=== PATIENT | male | born 1990 | race American Indian/Alaskan Native ===

== ENCOUNTER 2018-04-13 14:53 | Emergency (ER) | payer MEDICAID ==
[2018-04-13 15:02] VITALS: BMI 26.6
--- NOTE | 2018-04-13 15:58 | C.PDOC ---
History Of Present Illness 28yo male, otherwise healthy, comes to ER reporting concern due to "swelling" to the left side of his chest. Patient states he first noticed the "swelling" this morning but states he is unaware of how long the swelling has been present. He denies any fever, chills, trauma, chest pain or shortness of breath. No other complaitns. Time Seen by Provider: 04/13/18 15:42 Chief Complaint (Nursing): Medical Clearance History Per: Patient History/Exam Limitations: no limitations Onset/Duration Of Symptoms: Unknown Additional History Per: Patient Past Medical History Reviewed: Historical Data, Nursing Documentation, Vital Signs Vital Signs: Last Vital Signs Temp 98.4 F 04/13/18 15:02 Pulse 55 L 04/13/18 15:02 Resp 16 04/13/18 15:02 BP 118/72 04/13/18 15:02 Pulse Ox 99 04/13/18 15:02 - Medical History PMH: No Chronic Diseases Surgical History: No Surg Hx Family History: States: No Known Family Hx - Social History Hx Alcohol Use: No Hx Substance Use: No - Immunization History Hx Tetanus Toxoid Vaccination: No Hx Influenza Vaccination: No Hx Pneumococcal Vaccination: No Review Of Systems Constitutional: Negative for: Fever Cardiovascular: Positive for: Other ("swelling"). Negative for: Chest Pain Respiratory: Negative for: Cough, Shortness of Breath Skin: Negative for: Rash Physical Exam - Physical Exam Appears: Non-toxic, No Acute Distress Skin: Normal Color, Warm, Dry, No Rash Head: Atraumatic, Normacephalic Eye(s): bilateral: Normal Inspection Neck: Normal ROM, Supple Chest: No Symmetrical ((+) mild asymmetry noted on left lat, compared to right side. nontender and no mass noted.), No Deformity, No Tenderness Cardiovascular: Rhythm Regular Respiratory: Normal Breath Sounds Gastrointestinal/Abdominal: Normal Exam, Soft Back: Normal Inspection Extremity: Normal ROM Neurological/Psych: Oriented x3, Other (anxious appearing) ED Course And Treatment O2 Sat by Pulse Oximetry: 99 (RA) Pulse Ox Interpretation: Normal Medical Decision Making Medical Decision Making: Offered patient a CXR to r/o bony abnormalities. Patient declines any studies at this time and will follow up outpatient. Disposition Counseled Patient/Family Regarding: Diagnosis, Need For Followup - Disposition Referrals: [facility] [Outside] [facility] [Outside] Disposition: HOME/ ROUTINE Disposition Time: 15:57 Condition: GOOD Additional Instructions: FOLLOW UP CLINIC, RETURN IF WORSENING SYMPTOMS. Forms: [facility] (Frisian), General Discharge Instructions - Clinical Impression Clinical Impression: Chest wall asymmetry - Scribe Statement The provider has reviewed the documentation as recorded by the Scribe Leah Sutton Provider Attestation: All medical record entries made by the Scribe were at my direction and personally dictated by me. I have reviewed the chart and agree that the record accurately reflects my personal performance of the history, physical exam, medical decision making, and the department course for this patient. I have also personally directed, reviewed, and agree with the discharge instructions and disposition.
[2018-04-13 16:53] VITALS: BP 109/80; PULSE 62; RESP 18; TEMP 97.9; O2SAT 95
== END 2018-04-13 16:53 | disposition home or self-care (01) ==
LOC: MERGE 14:53 → C.ER 14:53
DX: R68.89 Other general symptoms and signs (principal)